=== PATIENT | male | born 1940 | race Caucasian/White ===

== ENCOUNTER → 2021-05-14 13:48 | Outpatient (CLI) | payer MEDICARE, OTHER, SELFPAY ==
--- NOTE | 2021-05-14 13:54 | DI.RAD.S_ITS ---
PROCEDURE: XR KNEE LT 3V INDICATIONS: Knee pain TECHNIQUE: Three views of the knee were acquired. COMPARISON: None. FINDINGS: Bones: No acute fractures or dislocations. No suspicious bony lesions. Generalized osteopenia. Moderate to severe tricompartmental degenerative changes are seen. There is mild lateral subluxation of the patella relative to the trochlear groove. Soft tissues: Moderate joint effusion. Calcifications are seen in the medial and lateral femorotibial joints, consistent with chondrocalcinosis. IMPRESSION: 1. 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 2. Chondrocalcinosis. 3. No acute osseous abnormality. If clinical suspicion and/or symptoms persist, additional imaging with repeat plain films, or advanced imaging (e.g. CT, MRI) may be helpful for further assessment. Dictated by: Con Garg M.D. on 05/14/2021 at 14:32 Approved by: Con Garg M.D. on 05/14/2021 at 14:37
== END ==
PROVIDERS: PCP Student in an Organized Health Care Education/Training Program; Referring Provider Nurse Practitioner Critical Care Medicine; Visit Provider Nurse Practitioner Critical Care Medicine
DX: M17.12 Unilateral primary osteoarthritis, left knee (principal); M11.262 Other chondrocalcinosis, left knee; M25.562 Pain in left knee
CPT/HCPCS: 73562

== ENCOUNTER → 2022-07-07 13:07 | Outpatient (CLI) | payer MEDICARE, OTHER, SELFPAY ==
--- NOTE | 2022-07-07 | DI.RAD.S_ITS ---
PROCEDURE: XR FOOT RT MIN 3V INDICATIONS: PAIN IN TOES TECHNIQUE: 3 views of the foot were acquired. COMPARISON: None. FINDINGS: Bones: No fractures or dislocations. No suspicious bony lesions. 1st MTP degenerative change. Deformity of the proximal phalanx of the small toe consistent with remote fracture. Soft tissues: No tibiotalar joint effusion. Achilles tendon appears normal. IMPRESSION: 1st MTP degenerative change. Dictated by: Luther Santos M.D. on 07/07/2022 at 16:39 Approved by: Luther Santos M.D. on 07/07/2022 at 16:40
--- NOTE | 2022-07-07 | DI.RAD.S_ITS ---
PROCEDURE: XR FOOT LT MIN 3V INDICATIONS: PAIN IN TOES TECHNIQUE: 3 views of the foot were acquired. COMPARISON: None. FINDINGS: Bones: No fractures or dislocations. No suspicious bony lesions. 1st MTP and 2nd MTP degenerative change. Soft tissues: No tibiotalar joint effusion. Achilles tendon appears normal. IMPRESSION: 1st MTP and 2nd MTP degenerative change. Dictated by: Luther Santos M.D. on 07/07/2022 at 16:33 Approved by: Luther Santos M.D. on 07/07/2022 at 16:39
== END ==
PROVIDERS: PCP Student in an Organized Health Care Education/Training Program; Referring Provider Podiatrist Foot & Ankle Surgery; Visit Provider Podiatrist Foot & Ankle Surgery
DX: M20.41 Other hammer toe(s) (acquired), right foot (principal); M79.675 Pain in left toe(s)
CPT/HCPCS: 73630

== ENCOUNTER → 2023-10-23 14:14 | Outpatient (CLI) | payer MEDICARE, OTHER, SELFPAY ==
--- NOTE | 2023-10-23 | DI.RAD.S_ITS ---
PROCEDURE: XR CHEST 2V INDICATIONS: SOB TECHNIQUE: 2 views of the chest were acquired. COMPARISON: [facility], CR, XR CHEST 2 VIEWS, 12/28/2018, 12:43. FINDINGS: Heart, mediastinum and pulmonary vascular: Heart is normal in size and configuration. Rightward displacement of the upper mediastinum, including the trachea , is similar to previous study and likely insignificant . some of this is due to rotation. Pulmonary vascular is normal. Lungs: Mild patchy airspace disease has developed in both mid and lower lungs Pleural spaces: Normal-no effusions or pneumothorax. Bones and soft tissues: Normal IMPRESSION: Minimal patchy airspace disease in both mid and lower lungs which could indicate developing infiltrates. Consider short-term radiographic follow-up Dictated by: Jorge Maldonado M.D. on 10/24/2023 at 8:08 Approved by: Jorge Maldonado M.D. on 10/24/2023 at 8:12
== END ==
LOC: RAD 14:16
PROVIDERS: PCP Student in an Organized Health Care Education/Training Program; Referring Provider Internal Medicine Cardiovascular Disease; Visit Provider Internal Medicine Cardiovascular Disease
DX: R06.02 Shortness of breath (principal); R94.31 Abnormal electrocardiogram [ECG] [EKG]
CPT/HCPCS: 71046

== ENCOUNTER → 2023-10-25 10:37 | Outpatient (CLI) | payer MEDICARE, OTHER, SELFPAY ==
[2023-10-25 12:00] LABS: Influenza A - CEPHEID Flu A NEGATIVE (NEGATIVE); Influenza B - CEPHEID Flu B NEGATIVE (NEGATIVE); Respiratory Syncytial Virus Negative (Negative)
[2023-10-25 14:20] LABS: COVID-19 CEPHEID 4-PLEX PCR Negative (Negative)
== END ==
PROVIDERS: PCP Student in an Organized Health Care Education/Training Program; Referring Provider Physician Assistant; Visit Provider Physician Assistant
DX: R05.1 Acute cough (principal)
CPT/HCPCS: 0241U

== ENCOUNTER → 2023-10-30 10:46 | Outpatient (CLI) | payer MEDICARE, OTHER, SELFPAY ==
--- NOTE | 2023-10-30 10:48 | DI.RAD.S_ITS ---
PROCEDURE: XR CHEST 2V INDICATIONS: f/u abnormal xray , confirm resolution TECHNIQUE: 2 views of the chest were acquired. COMPARISON: [facility], CR, XR CHEST 2V, 10/23/2023, 14:21. FINDINGS: Heart, mediastinum and pulmonary vasculature: Heart is normal in size and configuration. Mediastinum is unremarkable. Pulmonary vascular is normal. Lungs: Mild patchy airspace disease in the right mid and lower lung shows no significant change. Minimal patchy airspace disease left upper lung also unchanged Pleural spaces: Normal-no effusions or pneumothorax. Bones and soft tissues: Normal IMPRESSION: Mild patchy infiltrates in both mid and right lower lung unchanged. Dictated by: Jorge Maldonado M.D. on 10/31/2023 at 7:54 Approved by: Jorge Maldonado M.D. on 10/31/2023 at 7:56
== END ==
PROVIDERS: PCP Student in an Organized Health Care Education/Training Program; Referring Provider Physician Assistant; Visit Provider Physician Assistant
DX: J18.9 Pneumonia, unspecified organism (principal)
CPT/HCPCS: 71046

== ENCOUNTER → 2024-03-05 14:45 | Outpatient (CLI) | payer MEDICARE, OTHER, SELFPAY ==
[2024-03-05 15:33] LABS: Add Manual Diff / Slide Review NO; Basophils Absolute Auto 100 /uL (0-100); Basophils Percent Auto 0.9 % (0-2); Eosinophils Absolute Auto 200 /uL (0-450); Eosinophils Percent Auto 2.7 % (2-4); Hematocrit 42.4 % (41-53); Hemoglobin 14.5 g/dL (13.5-17.5); Lymphocytes Absolute Auto 1900 /uL (1100-4500); Lymphocytes Percent Auto 23.9 % (25-40); Mean Corpuscular HGB Conc 34.2 % (30-36); Mean Corpuscular Hemoglobin 32.8 PG (26-34); Mean Corpuscular Volume 95.9 fL (80-100); Monocytes Absolute Auto 600 /uL (0-900); Monocytes Percent Auto 7.7 % (3-14); Neutrophils Absolute Auto 5200 /uL (1500-7000); Neutrophils Percent Auto 64.8 % (50-75); Platelet Count 360 X10^3/uL (150-400); Red Blood Cell Count 4.41 X10^6/uL (4.5-5.9); Red Cell Distribution Width 13.9 % (11.6-14.8)
[2024-03-05 16:03] LABS: Alanine Aminotransferase 33 IU/L (<50); Albumin 4.2 g/dL (3.5-5.0); Albumin Globulin Ratio 1.4 (1.0-2.8); Alkaline Phosphatase 66 U/L (38-126); Aspartate Aminotransferase 33 IU/L (17-59); BUN Creatinine Ratio 18.2 (6-22); Bilirubin Total 0.3 mg/dL (0.2-1.3); Blood Urea Nitrogen 16 mg/dL (9-20); Calcium 9.9 mg/dL (8.4-10.2); Carbon Dioxide 26 mmol/L (22-32); Chloride 103 mmol/L (98-107); Cholesterol 179 mg/dL (140-199); Estimated Glomerular Filt Rate > 60 mL/min (>60); Globulin 3.1 g/dL (1.7-4.1); Glucose 107 mg/dL (80-110); HDL Cholesterol 37 mg/dL (40-60); HEMOLYSIS < 15 (0-50); LDL Cholesterol Calculated 105 mg/dL (<100); Potassium 4.7 mmol/L (3.4-5.1); Sodium 138 mmol/L (137-145); Total Protein 7.3 g/dL (6.3-8.2); Triglycerides 186 mg/dL (35-150)
[2024-03-05 16:11] LABS: Hemoglobin A1C% w Est Avg Glu 5.4 % (4.0-6.0)
[2024-03-07 04:11] LABS: CRP, High Sensitivity 1.67 mg/L (0.00-3.00)
== END ==
PROVIDERS: PCP Family Medicine; Referring Provider Family Medicine; Visit Provider Family Medicine
DX: E66.01 Morbid (severe) obesity due to excess calories (principal); Z13.1 Encounter for screening for diabetes mellitus; E78.00 Pure hypercholesterolemia, unspecified; I10 Essential (primary) hypertension; Z13.6 Encounter for screening for cardiovascular disorders
CPT/HCPCS: 80053; 80061; 83036; 85025; 86140

== ENCOUNTER 2024-05-30 11:22 | Emergency (ER) | payer MEDICARE, OTHER, SELFPAY ==
[2024-05-30] VITALS (43 sets, daily range): BP systolic 161–229; BP diastolic 79–108; PULSE 62–113; RESP 17–28; TEMP 36.6–37; O2SAT 91–98; BMI 43.7
--- NOTE | 2024-05-30 12:08 | DI.CT.S_ITS ---
PROCEDURE: CT HEAD/BRAIN WO CON INDICATIONS: Vision loss TECHNIQUE: Noncontrast 4.5 mm thick angled axial sections acquired from the foramen magnum to the vertex, with coronal and sagittal reformats. For radiation dose reduction, the following was used: automated exposure control, adjustment of mA and/or kV according to patient size. COMPARISON: None. FINDINGS: Image quality: Diagnostic. CSF spaces: Basal cisterns are patent. No extra-axial fluid collections. The ventricles are symmetric in size and shape. Brain: No intracranial bleeds or mass effect. There is cerebral volume loss, with resultant ventricular and sulcal prominence. There are periventricular and deep white matter chronic small vessel ischemic changes. There is intracranial internal carotid artery atherosclerosis. Skull and face: Calvarium and visualized facial bones appear intact, without suspicious lesions. Sinuses: Visualized sinuses and mastoids are clear. IMPRESSION: No acute intracranial pathology. Dictated by: Sky Koch M.D. on 05/30/2024 at 12:50 Approved by: Sky Koch M.D. on 05/30/2024 at 12:52
--- NOTE | 2024-05-30 12:08 | DI.CT.S_ITS ---
PROCEDURE: CT ANGIO HEAD AND NECK INDICATIONS: Vision loss TECHNIQUE: After the administration of intravenous contrast, 1 mm thick sections acquired from the aortic arch through the [place]. 3-dimensional qczrljz-ppwlcctfr-qwttzgivgj (MIP) and/or volume rendering reformats were acquired of the central intracranial vasculature and neck separately. For radiation dose reduction, the following was used: automated exposure control, adjustment of mA and/or kV according to patient size. COMPARISON: None. FINDINGS: Image quality: Diagnostic. HEAD CT ANGIOGRAPHY: Anterior circulation: Intracranial internal carotid arteries are normal in size and flow. The flow within the paired anterior cerebral arteries is normal and symmetric. The flow within the middle cerebral arteries is normal and symmetric. The anterior communicating artery is seen. No aneurysms are seen. Posterior circulation: Visualized portions of the vertebral arteries demonstrate normal caliber, and join to form a normal appearing basilar artery. Flow within the posterior cerebral arteries is normal and symmetric. No aneurysms are seen. NECK CT ANGIOGRAPHY: Carotid system: The great vessels demonstrate a conventional anatomy as they arise from the aortic arch. The origins of the common carotid arteries appear patent. There is a retropharyngeal course of the right common carotid artery (2/232). The common carotid arteries are tortuous in their course. The bifurcation regions are both widely patent. The internal carotid arteries demonstrate normal calibers and courses. Posterior circulation: The right vertebral artery is dominant in the posterior circulation. The origins of the vertebral arteries both appear widely patent. The more superior extracranial portions of both vertebral arteries also demonstrate normal courses and calibers. They join to form a normal appearing basilar artery. Soft tissues: Visualized neck soft tissues demonstrate no suspicious abnormalities. Scarring of the lung apices with a mosaic attenuation of the lung parenchyma, which can be seen with transient air trapping (2/337). Bones: No suspicious bony lesions. Visualized cervical spine appears normally aligned. IMPRESSION: No large vessel occlusion, dissection, or aneurysm in the visualized head and neck arterial vasculature. Any quantitative measurements of stenosis were performed using NASCET criteria. Dictated by: Sky Koch M.D. on 05/30/2024 at 12:52 Approved by: Sky Koch M.D. on 05/30/2024 at 12:58
--- NOTE | 2024-05-30 12:28 | ED_ITS ---
HPI - Eye Problem General Chief complaint: Eye Problems Stated complaint: Blurry right eye Time Seen by Provider: 05/30/24 11:59 Source: patient Mode of arrival: Ambulatory History of Present Illness HPI Narrative: Patient here for blurry vision in the right eye. He states his left eyes at baseline. Visual acuity done. He does not wear corrective glasses. He notes yesterday he was trying on some reading glasses and it appeared very blurry. Currently visual acuity 20/100 on the right eye 20/200 in the left eye. 20/100 together. He does have cataract with lens replacement done in 1994 by world language teacher. He sees Dr. Oleary, he saw him recently this year. Fast exam is negative. Patient desires any headache. No slurred speech facial droop. No confusion or altered mental status. No numbness tingling or weakness. Related Data Home Medications Medication Instructions Recorded Confirmed aspirin 81 mg tablet,delayed 81 mg PO DAILY 05/14/21 05/30/24 release (Adult Aspirin Regimen) omeprazole 20 mg capsule,delayed 20 mg PO DAILY 05/14/21 05/30/24 release atorvastatin 20 mg tablet 20 mg PO DAILY 11/01/23 05/30/24 losartan 50 mg tablet 50 mg PO DAILY 11/01/23 05/30/24 metoprolol succinate 25 mg 25 mg PO DAILY 11/01/23 05/30/24 tablet,extended release 24 hr ipratropium bromide 42 mcg (0.06 intranasal 03/05/24 03/05/24 %) nasal spray Previous Rx's Medication Instructions Recorded diclofenac sodium 1 % topical gel 2 g topical BID PRN pain #100 grams 05/14/21 (Voltaren Arthritis Pain) compressor, for nebulizer #1 ea 11/13/23 nebulizer accessories #50 ea 11/13/23 metformin 500 mg tablet 500 mg PO DAILY for diabetes 03/18/24 mellitus #90 tabs Allergies Allergy/AdvReac Type Severity Reaction Status Date / Time Iodinated Contrast Media Allergy Anaphylaxis Verified 05/30/24 13:01 grass pollen Allergy Mild congestion, Uncoded 05/30/24 11:41 eye irritation, sneezing Review of Systems Review of Systems Narrative: GENERAL: Negative chills, fatigue, malaise, fever, sweats. HEENT: Negative sinus pain, ear pain, sore throat, positive blurry vision RESPIRATORY: Negative dyspnea, cough CARDIOVASCULAR: Negative chest pain, palpitations GASTROINTESTINAL: Negative vomiting, nausea, abdominal pain : Negative dysuria, frequency, hematuria MUSCULOSKELETAL: Negative muscle or bony pain SKIN: Negative rash, skin lesions NEUROLOGIC: Negative weakness, numbness negative headache negative slurred speech negative facial droop ROS Unobtainable: All systems reviewed & are unremarkable except as noted in HPI and below Patient History Medical History (Updated 05/30/24 @ 16:13 by Rajendra See MD) Chondrocalcinosis Osteoarthrosis of knee Knee effusion, left Knee pain Effusion, right knee Surgical History (Updated 11/07/23 @ 14:32 by Brigette Orourke CMA) [place] teeth removed (02/06/1963) Social History Smoking Status: Never smoker Tobacco: How many years used: 4 alcohol intake: current substance use type: does not use Smoking Status: Never smoker Exam Narrative Exam Narrative: GENERAL: in no distress, not toxic not dyspneic HEAD: Normocephalic. EYES: Pupils equal round PERRLA, no pain with eye movement. Visual acuity completed by staff. ENT: Mucous membranes moist. NECK: Trachea midline. CARDIOVASCULAR: Regular rate and rhythm RESPIRATORY: Clear to auscultation. Breath sounds equal bilaterally. No wheezes, rales, or rhonchi. GASTROINTESTINAL: Abdomen soft, non-tender EXTREMITIES: No gross deformities. BACK: No flank tenderness. NEURO: AOx4. Clear speech no facial droop light touch intact to bilateral face hands and legs. Strong equal testing and regulating technician. Negative pronator drift. Steady bilateral straight leg raises. SKIN: Warm and dry PSYCH: Not anxious, is cooperative Initial Vital Signs Initial Vital Signs: Vital Signs Pulse Rate 93 H 05/30/24 11:29 Pulse Oximetry 95 05/30/24 11:29 Course Orders Ordered: Discontinued Medications Diphenhydramine HCl (Diphenhydramine 50 Mg/Ml Vial) 50 mg IV NOW ONE Stop: 05/30/24 12:52 Last Admin: 05/30/24 12:59 Dose: 50 mg Documented By: LILLIE Famotidine (Famotidine 20 Mg/2 Ml Vial) 20 mg IV NOW [facility] Famotidine (Famotidine 20 Mg/2 Ml Vial) 20 mg IV NOW ONE Stop: 05/30/24 13:46 Last Admin: 05/30/24 12:59 Dose: 20 mg Documented By: XOCHITL Hydralazine HCl (Hydralazine 20 Mg/Ml Vial) 20 mg IV NOW ONE Stop: 05/30/24 13:07 Last Admin: 05/30/24 13:18 Dose: 20 mg Documented By: LILLIE Hydralazine HCl (Hydralazine 20 Mg/Ml Vial) 10 mg IV NOW ONE Stop: 05/30/24 18:01 Last Admin: 05/30/24 18:04 Dose: 10 mg Documented By: JAYA Sodium Chloride (Normal Saline 0.9%) 500 mls @ 1,000 mls/hr IV BOLUS ONE Stop: 05/30/24 12:35 Last Infusion: 05/30/24 13:19 Dose: Infused Documented By: Admin: 05/30/24 12:35 Dose: 1,000 mls/hr Documented By: XOCHITL Losartan Potassium (Losartan 50 Mg Tablet) 50 mg PO NOW ONE Stop: 05/30/24 17:15 Last Admin: 05/30/24 17:21 Dose: 50 mg Documented By: JAYA Methylprednisolone (Methylprednisolone 125 Mg/2 Ml Vial) 125 mg IV NOW ONE Stop: 05/30/24 12:52 Last Admin: 05/30/24 12:59 Dose: 125 mg Documented By: LILLIE Metoprolol Succinate (Metoprolol Er 25 Mg Tablet) 25 mg PO NOW ONE Stop: 05/30/24 16:35 Last Admin: 05/30/24 16:40 Dose: 25 mg Documented By: JAYA Vital Signs Vital signs: Vital Signs - 8 hr 05/30/24 11:29 05/30/24 11:30 05/30/24 11:30 Temperature Pulse Rate 93 H 93 H Respiratory Rate Blood Pressure 227/102 H Pulse Oximetry 95 97 Oxygen Delivery Method 05/30/24 11:32 05/30/24 11:38 05/30/24 11:43 Temperature 98 F Pulse Rate 92 H Respiratory Rate 18 Blood Pressure 227/102 H 228/108 H 229/107 H Pulse Oximetry 95 Oxygen Delivery Method Room Air 05/30/24 11:43 05/30/24 11:45 05/30/24 12:00 Temperature Pulse Rate 73 70 65 Respiratory Rate Blood Pressure Pulse Oximetry 95 95 95 Oxygen Delivery Method 05/30/24 12:01 05/30/24 12:01 05/30/24 12:15 Temperature Pulse Rate 72 73 Respiratory Rate Blood Pressure 195/90 H Pulse Oximetry 95 95 Oxygen Delivery Method 05/30/24 12:34 05/30/24 12:35 05/30/24 12:35 Temperature Pulse Rate 92 H 75 Respiratory Rate Blood Pressure 218/97 H Pulse Oximetry 96 95 Oxygen Delivery Method 05/30/24 12:45 05/30/24 13:00 05/30/24 13:01 Temperature Pulse Rate 68 64 62 Respiratory Rate 17 17 Blood Pressure Pulse Oximetry 91 97 Oxygen Delivery Method 05/30/24 13:01 05/30/24 13:15 05/30/24 13:16 Temperature Pulse Rate 66 Respiratory Rate 23 Blood Pressure 225/93 H 220/104 H Pulse Oximetry 97 Oxygen Delivery Method 05/30/24 13:16 05/30/24 13:18 05/30/24 13:30 Temperature Pulse Rate 69 67 78 Respiratory Rate 24 Blood Pressure 220/104 H Pulse Oximetry 98 97 Oxygen Delivery Method 05/30/24 13:31 05/30/24 13:31 05/30/24 13:45 Temperature Pulse Rate 78 Respiratory Rate 17 Blood Pressure 175/81 H 167/79 H Pulse Oximetry 97 Oxygen Delivery Method 05/30/24 13:45 05/30/24 14:00 05/30/24 14:15 Temperature Pulse Rate 85 95 H 95 H Respiratory Rate 19 24 Blood Pressure Pulse Oximetry 98 98 97 Oxygen Delivery Method 05/30/24 14:24 05/30/24 14:24 05/30/24 14:30 Temperature Pulse Rate 101 H 85 Respiratory Rate 26 H Blood Pressure 169/81 H 167/79 H Pulse Oximetry 97 Oxygen Delivery Method 05/30/24 14:30 05/30/24 14:30 05/30/24 14:45 Temperature Pulse Rate 96 H Respiratory Rate 20 Blood Pressure 177/85 H 176/95 H Pulse Oximetry 97 Oxygen Delivery Method 05/30/24 14:45 05/30/24 15:41 05/30/24 15:42 Temperature Pulse Rate 101 H 101 H 100 H Respiratory Rate 28 H Blood Pressure Pulse Oximetry 93 95 95 Oxygen Delivery Method 05/30/24 15:42 05/30/24 15:45 05/30/24 15:45 Temperature Pulse Rate 100 H Respiratory Rate 21 Blood Pressure 177/86 H 161/81 H Pulse Oximetry 95 Oxygen Delivery Method MDM - Eye Problem Lab Data 05/30/24 12:25 04/24/25 12:25 Labs: Lab Results 05/30/24 Range/Units 12:25 WBC 7.8 (4.5-11.0) X10^3/uL RBC 4.48 L (4.5-5.9) X10^6/uL Hgb 14.6 (13.5-17.5) g/dL Hct 43.3 (41-53) % MCV 96.6 (80-100) fL MCH 32.6 (26-34) PG MCHC 33.8 (30-36) % RDW 14.4 (11.6-14.8) % Plt Count 252 (150-400) X10^3/uL Neut % (Auto) 78.2 H (50-75) % Lymph % (Auto) 12.7 L (25-40) % [place] % (Auto) 7.5 (3-14) % Eos % (Auto) 1.3 L (2-4) % Baso % (Auto) 0.3 (0-2) % Neut # (Auto) 6100 (2001-9858) /uL Lymph # (Auto) 1000 L (4508-4114) /uL [place] # (Auto) 600 (0-900) /uL Eos # (Auto) 100 (0-450) /uL Baso # (Auto) 0 (0-100) /uL Sodium 139 (137-145) mmol/L Potassium 4.4 (3.4-5.1) mmol/L Chloride 104 (98-107) mmol/L Carbon Dioxide 27 (22-32) mmol/L BUN 17 (9-20) mg/dL Creatinine 0.76 (0.66-1.25) mg/dL Estimated GFR > 60 (>60) mL/min BUN/Creatinine Ratio 22.4 H (6-22) Glucose 116 H (70-99) mg/dL Calcium 9.3 (8.4-10.2) mg/dL Total Bilirubin 0.7 (0.2-1.3) mg/dL AST 34 (17-59) IU/L ALT 36 (<50) IU/L Alkaline Phosphatase 67 (38-126) U/L Total Protein 7.7 (6.3-8.2) g/dL Albumin 4.3 (3.5-5.0) g/dL Globulin 3.4 (1.7-4.1) g/dL Albumin/Globulin Ratio 1.3 (1.0-2.8) [facility] Narrative Medical decision making narrative: Patient here for blurry vision in the right eye. He states his left eyes at baseline. Visual acuity done. He does not wear corrective glasses. He notes yesterday he was trying on some reading glasses and it appeared very blurry. Currently visual acuity 20/100 on the right eye 20/200 in the left eye. 20/100 together. He does have cataract with lens replacement done in 1994 by world language teacher. He sees Dr. Oleary, he saw him recently this year. Fast exam is negative. Patient desires any headache. No slurred speech facial droop. No confusion or altered mental status. No numbness tingling or weakness. After history and exam, CT head CT angiogram head and neck CBC CMP EKG normal saline. Patient is too big to fit in our MRI machine. [facility] Medical records reviewed: No recent visit for this complaint Differential considered: Includes but not limited to Lab Test results independently reviewed as above. Pertinent findings: WBC 7.8 hemoglobin 14.6 sodium 139 potassium 4.4 BUN 17 creatinine 0.76 GFR greater than 60 glucose 116 Independently reviewed EKG Imaging studies independently reviewed: CT head CT angiogram head and neck no acute finding Consultations: 2:51 p.m.. Spoke with patient's world language teacher Dr. Oleary. He would like patient to be transferred to [facility]. His office is not open at this time. No new medications indicated at this time. There is concern for central retinal artery occlusion. 1:30 p.m.. Spoke with [facility] neurology Dr. Perez, she does not feel patient needs urgent MRI or transfer at this time from Neurology standpoint but would recommend patient be on Plavix 75 mg daily along with aspirin 81 mg daily for 21 days and then resume aspirin monotherapy 81 mg daily. 1:53 p.m.. Spoke with [facility] ophthalmology [facility] Dr. Bauer, she would like patient transferred to [facility] Emergency Department. She will accept patient. Patient will need dilation and further exam of the eye. No new medications indicated at this time. Re-evaluations: 2:28 p.m.. Blood pressure has improved 167/79 but still has right eye blurry vision. He has appointment next Monday with Dr. Oleary his world language teacher however Dr. Oleary's on-call today and I will try to get him in the office now. Patient did have brief throat tightness after CT with IV contrast, however given Solu-Medrol Pepcid and Benadryl and feeling much better now. Never had oral swelling or trouble breathing. Trying to contact Dr. Oleary now for office appointment time today. Reviewed with patient and results. They are reassuring at this time. Patient is too large for MRI. We measured him. He states last time he tried to go into MRI he was too big. 4:00 p.m.. Updated patient and my discussion with providers. They do understand need for urgent transferred to [facility] Emergency Department for Ophthalmology to evaluate his good eye. Patient in no distress at this time. No changes with vision. No headache. No neuro complaints. Discussion: Appropriate for transfer for higher level care for ophthalmology exam and evaluation. Diagnosis: Right eye blurry vision Discharge Plan Departure Patient Disposition: [facility] Clinical Impression: Blurred vision, right eye Prescriptions: No Action omeprazole 20 mg capsule,delayed release(DR/EC) 20 mg PO DAILY aspirin [Adult Aspirin Regimen] 81 mg tablet,delayed release (DR/EC) 81 mg PO DAILY diclofenac sodium [Voltaren Arthritis Pain] 1 % gel 2 g topical BID PRN (Reason: pain) Qty: 100 0RF Rx Instructions: apply to single elbow, wrist or hand; for hand includes palm/fingers/back of hand metoprolol succinate 25 mg tablet extended release 24 hr 25 mg PO DAILY atorvastatin 20 mg tablet 20 mg PO DAILY losartan 50 mg tablet 50 mg PO DAILY (DME) compressor, for nebulizer Device See Rx Instructions .Route Qty: 1 0RF Rx Instructions: USE TO ADMINISTER BREATHING TREATMENT Q4H PRN (DME) nebulizer accessories Kit See Rx Instructions .Route Qty: 50 0RF Rx Instructions: USE TO ADMINISTER BREATHING TREATMENT Q4H PRN metformin 500 mg tablet 500 mg PO DAILY Qty: 90 3RF ipratropium bromide 42 mcg (0.06 %) spray,non-aerosol intranasal Referrals: Niyah Covarrubias DO [Primary Care Provider] - Stand Alone Forms: Patient Portal/API/Survey
[2024-05-30 12:34] LABS: Add Manual Diff / Slide Review NO; Basophils Absolute Auto 0 /uL (0-100); Basophils Percent Auto 0.3 % (0-2); Eosinophils Absolute Auto 100 /uL (0-450); Eosinophils Percent Auto 1.3 % (2-4); Hematocrit 43.3 % (41-53); Hemoglobin 14.6 g/dL (13.5-17.5); Lymphocytes Absolute Auto 1000 /uL (1100-4500); Lymphocytes Percent Auto 12.7 % (25-40); Mean Corpuscular HGB Conc 33.8 % (30-36); Mean Corpuscular Hemoglobin 32.6 PG (26-34); Mean Corpuscular Volume 96.6 fL (80-100); Monocytes Absolute Auto 600 /uL (0-900); Monocytes Percent Auto 7.5 % (3-14); Neutrophils Absolute Auto 6100 /uL (1500-7000); Neutrophils Percent Auto 78.2 % (50-75); Platelet Count 252 X10^3/uL (150-400); Red Blood Cell Count 4.48 X10^6/uL (4.5-5.9); Red Cell Distribution Width 14.4 % (11.6-14.8); White Blood Cell Count 7.8 X10^3/uL (4.5-11.0)
[2024-05-30] MEDS: SODIUM CHLORIDE 0.9% 500 ML 1000 ML IV (12:35)
[2024-05-30 12:45] LABS: Alanine Aminotransferase 36 IU/L (<50); Albumin 4.3 g/dL (3.5-5.0); Albumin Globulin Ratio 1.3 (1.0-2.8); Alkaline Phosphatase 67 U/L (38-126); Aspartate Aminotransferase 34 IU/L (17-59); BUN Creatinine Ratio 22.4 (6-22); Bilirubin Total 0.7 mg/dL (0.2-1.3); Blood Urea Nitrogen 17 mg/dL (9-20); Calcium 9.3 mg/dL (8.4-10.2); Carbon Dioxide 27 mmol/L (22-32); Chloride 104 mmol/L (98-107); Estimated Glomerular Filt Rate > 60 mL/min (>60); Globulin 3.4 g/dL (1.7-4.1); Glucose 116 mg/dL (70-99); HEMOLYSIS 18 (0-50); Potassium 4.4 mmol/L (3.4-5.1); Sodium 139 mmol/L (137-145); Total Protein 7.7 g/dL (6.3-8.2)
[2024-05-30] MEDS: methylPREDNISolone 125 MG/2 ML VIAL IV (12:59)
[2024-05-30] MEDS: diphenhydrAMINE 50 MG/ML VIAL IV (12:59)
[2024-05-30] MEDS: FAMOTIDINE 20 MG/2 ML VIAL IV (12:59)
--- NOTE | 2024-05-30 13:01 | PC.NURSE ---
Pt returned from CT,received IV contrast. Pt began having a scratchy feeling in his throat and felt like he was having difficulty swallowing. Pt was managing secretions and was not in respiratory distress. Pt felt like there was swelling in his throat. Dr See made aware immediately,allergic reaction meds were being ordered,pulled from pyxis and administered.
--- NOTE | 2024-05-30 13:17 | EKG_ITS ---
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
[2024-05-30] MEDS: hydrALAZINE 20 MG/ML VIAL IV (13:18)
[2024-05-30] MEDS: METOPROLOL ER 25 MG TABLET PO (16:40)
[2024-05-30] MEDS: LOSARTAN 50 MG TABLET PO (17:21)
[2024-05-30] MEDS: hydrALAZINE 20 MG/ML VIAL 10 MG IV (18:04)
== END 2024-05-30 18:10 | disposition short-term general hospital (02) ==
PROVIDERS: Emergency Provider Emergency Medicine; PCP Family Medicine
DX: H53.8 Other visual disturbances (principal)
CPT/HCPCS: 36415; 70450; 70496; 70498; 80053; 85025; 93005; 93010; 96361; 96374; 96375; 96376; 99284; J0360; J1200; J2919; Q9967

== ENCOUNTER → 2024-06-06 08:49 | Outpatient (CLI) | payer MEDICARE, OTHER, SELFPAY ==
[2024-06-06 10:16] LABS: Alanine Aminotransferase 33 IU/L (<50); Albumin Globulin Ratio 1.5 (1.0-2.8); Alkaline Phosphatase 63 U/L (38-126); Aspartate Aminotransferase 26 IU/L (17-59); BUN Creatinine Ratio 22.1 (6-22); Bilirubin Total 0.5 mg/dL (0.2-1.3); Blood Urea Nitrogen 19 mg/dL (9-20); Calcium 9.4 mg/dL (8.4-10.2); Carbon Dioxide 30 mmol/L (22-32); Chloride 103 mmol/L (98-107); Cholesterol 175 mg/dL (140-199); Estimated Glomerular Filt Rate > 60 mL/min (>60); Globulin 2.7 g/dL (1.7-4.1); Glucose 114 mg/dL (70-99); HDL Cholesterol 45 mg/dL (40-60); HEMOLYSIS < 15 (0-50); LDL Cholesterol Calculated 107 mg/dL (<100); Potassium 5.1 mmol/L (3.4-5.1); Sodium 140 mmol/L (137-145); Total Protein 6.7 g/dL (6.3-8.2); Triglycerides 115 mg/dL (35-150)
[2024-06-06 10:18] LABS: Hemoglobin A1C% w Est Avg Glu 5.4 % (4.0-6.0)
== END ==
LOC: LAB 08:50
PROVIDERS: PCP Family Medicine; Referring Provider Family Medicine; Visit Provider Family Medicine
DX: E88.810 Metabolic syndrome (principal); E66.9 Obesity, unspecified; E66.01 Morbid (severe) obesity due to excess calories; E78.00 Pure hypercholesterolemia, unspecified
CPT/HCPCS: 36415; 80053; 80061; 83036; 86140

== ENCOUNTER → 2024-12-31 11:00 | Outpatient (CLI) | payer MEDICARE, OTHER, SELFPAY ==
[2024-12-31 12:20] LABS: Hematocrit 45.0 % (41-53); Hemoglobin 15.3 g/dL (13.5-17.5); Mean Corpuscular HGB Conc 33.9 % (30-36); Mean Corpuscular Hemoglobin 33.0 PG (26-34); Mean Corpuscular Volume 97.4 fL (80-100); Platelet Count 239 X10^3/uL (150-400)
[2024-12-31 12:52] LABS: Alanine Aminotransferase 30 IU/L (<50); Albumin 4.5 g/dL (3.5-5.0); Albumin Globulin Ratio 1.6 (1.0-2.8); Alkaline Phosphatase 60 U/L (38-126); Blood Urea Nitrogen 21 mg/dL (9-20); Calcium 9.6 mg/dL (8.4-10.2); Carbon Dioxide 25 mmol/L (22-32); Chloride 105 mmol/L (98-107); Estimated Glomerular Filt Rate > 60 mL/min (>60); Globulin 2.9 g/dL (1.7-4.1); Glucose 101 mg/dL (70-99); HEMOLYSIS < 15 (0-50); Potassium 4.8 mmol/L (3.4-5.1); Sodium 140 mmol/L (137-145); Total Protein 7.4 g/dL (6.3-8.2)
[2025-01-01 04:37] LABS: CRP, High Sensitivity 0.52 mg/L (0.00-3.00)
[2025-01-01 06:39] LABS: Insulin Level Total 24.8 uIU/mL (2.6-24.9)
== END ==
PROVIDERS: PCP Family Medicine; Referring Provider Family Medicine; Visit Provider Family Medicine
DX: I10 Essential (primary) hypertension (principal); E78.00 Pure hypercholesterolemia, unspecified; E66.01 Morbid (severe) obesity due to excess calories; E11.9 Type 2 diabetes mellitus without complications; M17.12 Unilateral primary osteoarthritis, left knee
CPT/HCPCS: 36415; 80053; 83525; 85027; 86140